=== PATIENT | female | born 1930 ===

== ENCOUNTER 2017-06-14 11:30 | Observation (INO) | payer MEDICARE ==
[2017-06-14 11:30] VITALS: BMI 26.5
[2017-06-14 12:00] LABS: BASO # 0.1 K/uL (0.0-0.2); BASO % 0.8 % (0.0-2.0); EOS % 0.2 % (0.0-4.0); HEMOGLOBIN 12.5 g/dL (11.0-16.0); LYMPH # 1.5 K/uL (1.0-4.3); LYMPH % 14.7 % (20.0-40.0); MEAN CELL VOLUME 90.9 fL (81.0-99.0); MEAN CORPUSCULAR HEMOGLOBIN 30.9 pg (27.0-31.0); MEAN PLATELET VOLUME 8.9 fL (7.2-11.7); MONO # 0.8 K/uL (0.0-0.8); MONO % 8.4 % (0.0-10.0); NEUT # 7.5 K/uL (1.8-7.0); NEUT % 75.9 % (50.0-75.0); RBC 4.06 Mil/uL (3.80-5.20); RED CELL DISTRIBUTION WIDTH 14.5 % (11.5-14.5); WHITE BLOOD COUNT 9.9 K/uL (4.8-10.8)
[2017-06-14 12:13] LABS: ALB/GLOB RATIO 1.1 (1.0-2.1); ALBUMIN 3.7 g/dL (3.5-5.0); ALT/SGPT 23 U/L (9-52); AST/SGOT 31 U/L (14-36); BLOOD UREA NITROGEN 16 mg/dL (7-17); CALCIUM 9.1 mg/dl (8.6-10.4); GFR AFRICAN-AMERICAN > 60; GFR NON-AFRICAN AMERICAN > 60
--- NOTE | 2017-06-14 12:28 | C.PDOC ---
History Of Present Illness Patient presents to ED sent by PMD after patient was found with High blood pressure at office and states she had dizziness since yesterday. At ED patient is asymptomatic but admits to feeling unstable when walking. Patient admits to nausea but denies vomiting, chest pain, sob, abdominal pain or any other complaints at this time. Time Seen by Provider: 06/14/17 11:54 Chief Complaint (Nursing): Dizziness/Lightheaded History Per: Patient History/Exam Limitations: no limitations Onset/Duration Of Symptoms: Days Current Symptoms Are (Timing): Still Present Past Medical History Reviewed: Historical Data, Nursing Documentation, Vital Signs Vital Signs: Last Vital Signs Temp 98.1 F 06/14/17 11:34 Pulse 94 H 06/14/17 11:34 Resp 19 06/14/17 11:34 BP 194/73 H 06/14/17 11:34 Pulse Ox 98 06/14/17 12:44 - Medical History PMH: Gall Bladder Disease, Hypercholesterolemia, Malignancy (BREAST CA), Osteoporosis Surgical History: Cholecystectomy - [facility] Procedures OTH NONOPER CARD AND VASC MEASURE (09/18/12) Family History: States: No Known Family Hx - Social History Hx Tobacco Use: No Hx Alcohol Use: No Hx Substance Use: No - Immunization History Hx Tetanus Toxoid Vaccination: No Hx Influenza Vaccination: Yes Hx Pneumococcal Vaccination: No Review Of Systems Except As Marked, All Systems Reviewed And Found Negative. Gastrointestinal: Positive for: Nausea Neurological: Positive for: Dizziness Physical Exam - Physical Exam Appears: Non-toxic, No Acute Distress Skin: Warm, Dry, No Rash Head: Atraumatic, Normacephalic Eye(s): bilateral: Normal Inspection Oral Mucosa: Moist Neck: Normal ROM, Supple Cardiovascular: Rhythm Regular Respiratory: Normal Breath Sounds, No Rales, No Rhonchi, No Wheezing Gastrointestinal/Abdominal: Soft, No Tenderness, No Guarding, No Rebound Extremity: Normal ROM, Capillary Refill (<2 seconds) Neurological/Psych: Oriented x3, Normal Speech, Normal Cognition ED Course And Treatment - Laboratory Results Result Diagrams: 06/14/17 11:56 06/14/17 11:56 ECG: Interpreted By Me, Viewed By Me ECG Rhythm: Sinus Rhythm, R BBB Rate From EC (BPM) O2 Sat by Pulse Oximetry: 98 (RA) Pulse Ox Interpretation: Normal Medical Decision Making Medical Decision Making: Assessment: Dizziness Progress: D/w Dr. Bertrand requested for patient to be admitted to Tele obs for dizziness and HTN Disposition Discussed With .: Clemente Bertrand Doctor Will See Patient In The: Hospital Counseled Patient/Family Regarding: Studies Performed, Diagnosis - Disposition Disposition: HOSPITALIZED Disposition Time: 12:28 Condition: FAIR Forms: [facility] ([place]) - Clinical Impression Clinical Impression: Dizziness, Hypertension - Scribe Statement The provider has reviewed the documentation as recorded by the Christianoibchristie Shah All medical record entries made by the Christianoibchristie were at my direction and personally dictated by me. I have reviewed the chart and agree that the record accurately reflects my personal performance of the history, physical exam, medical decision making, and the department course for this patient. I have also personally directed, reviewed, and agree with the discharge instructions and disposition.
[2017-06-14 12:46] LABS: B-TYPE NATRIURETIC PEPTIDE 161 pg/mL (0-900)
--- NOTE | 2017-06-14 13:02 | CT ---
PROCEDURE: CT HEAD WITHOUT CONTRAST. HISTORY: Dizziness COMPARISON: 11/30/2015. TECHNIQUE: Axial computed tomography images were obtained through the head/brain without intravenous contrast. Radiation dose: Total exam DLP = 826.11 mGy-cm. This CT exam was performed using one or more of the following dose reduction techniques: Automated exposure control, adjustment of the mA and/or kV according to patient size, and/or use of iterative reconstruction technique. FINDINGS: HEMORRHAGE: No intracranial hemorrhage. BRAIN: There are mild chronic microangiopathic changes. There is no mass, mass effect or abnormal extra-axial fluid collection. There is no territorial infarction. VENTRICLES: There is mild age-related global parenchymal volume loss and proportionate enlargement of the ventricles and cortical sulci. CALVARIUM: There is hyperostosis frontalis interna. PARANASAL SINUSES: Predominantly clear. MASTOID AIR CELLS: Predominantly clear. OTHER FINDINGS: None. IMPRESSION: No acute intracranial abnormality. No significant interval change.
--- NOTE | 2017-06-14 13:13 | RAD ---
PROCEDURE: CHEST RADIOGRAPH, 1 VIEW HISTORY: Shortness of breath COMPARISON: 11/24/2015. FINDINGS: LUNGS: The lungs are well inflated and clear. PLEURA: No pneumothorax or pleural fluid seen. CARDIOVASCULAR: The heart is normal in size. Atherosclerotic aortic arch calcifications are present. OSSEOUS STRUCTURES: Within normal limits for the patient's age. VISUALIZED UPPER ABDOMEN: Normal. OTHER FINDINGS: Surgical clips in the right upper quadrant are related to prior cholecystectomy.. IMPRESSION: No active pulmonary disease.
--- NOTE | 2017-06-14 18:32 | MRI ---
PROCEDURE: MRI BRAIN WITH AND WITHOUT CONTRAST HISTORY: cerebral ataxia. History of left breast cancer and hypertension. COMPARISON: Noncontrast head CT from 06/14/2017. TECHNIQUE: Multiplanar, multisequence MR images of the brain were obtained with and without intravenous contrast enhancement. 10 mL Omniscan was injected intravenously. FINDINGS: HEMORRHAGE: None DWI: No evidence of an acute or early subacute infarction. BRAIN PARENCHYMA: Cisse-white matter differentiation is preserved. There is no mass, mass effect or abnormal extra-axial fluid collection. There are old lacunar infarctions in the right cerebellar hemisphere. There are mild chronic microangiopathic changes. The midline sagittal structures are normal. ENHANCEMENT: No abnormal intracranial enhancement. VENTRICLES: There is mild age-related global parenchymal volume loss and proportionate enlargement of the ventricles and cortical sulci. CRANIUM: There is normal bone marrow signal pattern. There is mild hyperostosis frontalis interna. ORBITS: Grossly unremarkable. PARANASAL SINUSES/MASTOIDS: Predominantly clear. VASCULAR SYSTEM: There are normal signal voids in the larger intracranial arteries. OTHER FINDINGS: None . IMPRESSION: No acute intracranial abnormality. Mild chronic microangiopathic changes and mild age-related global parenchymal volume loss. 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
--- NOTE | 2017-06-14 23:05 | CP.PCM.HP ---
Past Patient History - Past Medical History & Family History Past Medical History?: Yes - Past Social History Smoking Status: Never Smoked - CARDIAC Hx Hypercholesterolemia: Yes - HEENT Hx HEENT Problems: Yes Hx Cataracts: Yes (BILAT IOL) - ENDOCRINE/METABOLIC Hx Endocrine Disorders: Yes Hx Diabetes Mellitus Type 2: Yes - HEMATOLOGICAL/ONCOLOGICAL Hx Blood Disorders: Yes Hx Cancer: Yes (LEFT BREAST 3 YEARS AGO POST RADIATION) - INTEGUMENTARY Hx Dermatological Problems: Yes Other/Comment: ecchymosis right cheek - MUSCULOSKELETAL/RHEUMATOLOGICAL Hx Osteoporosis: Yes - GASTROINTESTINAL Hx Gall Bladder Disease: Yes - GENITOURINARY/GYNECOLOGICAL Hx Genitourinary Disorders: Yes (THICKENED ENDOMETRIUM) - PSYCHIATRIC Hx Substance Use: No - SURGICAL HISTORY Hx Cholecystectomy: Yes - ANESTHESIA Hx Anesthesia: Yes Hx Anesthesia Reactions: No Hx Malignant Hyperthermia: No Meds Allergies/Adverse Reactions: Allergies Allergy/AdvReac Type Severity Reaction Status Date / Time No Known Allergies Allergy Verified 06/14/17 11:39 Results - Vital Signs Recent Vital Signs: Last Vital Signs Temp 98 F 06/14/17 15:46 Pulse 92 H 06/14/17 16:00 Resp 20 06/14/17 15:46 BP 149/70 06/14/17 15:46 Pulse Ox 98 06/14/17 15:46 - Labs Result Diagrams: 06/14/17 11:56 06/14/17 11:56 Labs: Laboratory Results - last 24 hr 06/14/17 06/14/17 06/14/17 11:56 11:56 12:07 WBC 9.9 RBC 4.06 Hgb 12.5 Hct 36.9 MCV 90.9 MCH 30.9 MCHC 34.0 RDW 14.5 Plt Count 208 MPV 8.9 Neut % (Auto) 75.9 H Lymph % (Auto) 14.7 L Cottle % (Auto) 8.4 Eos % (Auto) 0.2 Baso % (Auto) 0.8 Neut # (Auto) 7.5 H Lymph # (Auto) 1.5 Cottle # (Auto) 0.8 Eos # (Auto) 0.0 Baso # (Auto) 0.1 Sodium 140 Potassium 4.1 Chloride 101 Carbon Dioxide 27 Anion Gap 16 BUN 16 Creatinine 0.6 L Est GFR ( Amer) > 60 Est GFR (Non-Af Amer) > 60 POC Glucose (mg/dL) Random Glucose 121 H Calcium 9.1 Total Bilirubin 0.5 AST 31 ALT 23 Alkaline Phosphatase 52 Troponin I < 0.0120 NT-Pro-B Natriuret Pep 161 Total Protein 7.2 Albumin 3.7 Globulin 3.5 Albumin/Globulin Ratio 1.1 06/14/17 06/14/17 16:12 20:50 WBC RBC Hgb Hct MCV MCH MCHC RDW Plt Count MPV Neut % (Auto) Lymph % (Auto) Cottle % (Auto) Eos % (Auto) Baso % (Auto) Neut # (Auto) Lymph # (Auto) Cottle # (Auto) Eos # (Auto) Baso # (Auto) Sodium Potassium Chloride Carbon Dioxide Anion Gap BUN Creatinine Est GFR ( Amer) Est GFR (Non-Af Amer) POC Glucose (mg/dL) 79 170 H Random Glucose Calcium Total Bilirubin AST ALT Alkaline Phosphatase Troponin I NT-Pro-B Natriuret Pep Total Protein Albumin Globulin Albumin/Globulin Ratio
[2017-06-15 06:39] LABS: BASO # 0.1 K/uL (0.0-0.2); BASO % 1.3 % (0.0-2.0); EOS # 0.1 K/uL (0.0-0.7); EOS % 1.8 % (0.0-4.0); HEMOGLOBIN 12.5 g/dL (11.0-16.0); LYMPH # 2.1 K/uL (1.0-4.3); LYMPH % 27.9 % (20.0-40.0); MEAN CELL VOLUME 91.1 fL (81.0-99.0); MEAN CORPUSCULAR HEMOGLOBIN 31.2 pg (27.0-31.0); MEAN CORPUSCULAR HGB CONC 34.3 g/dL (33.0-37.0); MEAN PLATELET VOLUME 9.3 fL (7.2-11.7); MONO # 0.8 K/uL (0.0-0.8); MONO % 10.6 % (0.0-10.0); NEUT # 4.4 K/uL (1.8-7.0); NEUT % 58.4 % (50.0-75.0); NRBC % 0.1 % (0.0-2.0); RED CELL DISTRIBUTION WIDTH 14.6 % (11.5-14.5); WHITE BLOOD COUNT 7.5 K/uL (4.8-10.8)
[2017-06-15 06:53] LABS: ALB/GLOB RATIO 1.1 (1.0-2.1); ALBUMIN 3.6 g/dL (3.5-5.0); ALT/SGPT 24 U/L (9-52); AST/SGOT 29 U/L (14-36); BLOOD UREA NITROGEN 14 mg/dL (7-17); GFR AFRICAN-AMERICAN > 60; GFR NON-AFRICAN AMERICAN > 60
[2017-06-15 07:01] LABS: CK-MB 0.52 ng/mL (0.0-3.38)
[2017-06-15 08:07] VITALS: BP 144/68; RESP 18; TEMP 98.1; O2SAT 98
--- NOTE | 2017-06-15 12:55 | CP.PCM.PN ---
Subjective - Date & Time of Evaluation Date of Evaluation: 06/15/17 Time of Evaluation: 12:55 - Subjective Subjective: - SEGUIMIENTO CON EL DR. GOLDBERG EN LA OFICINA EN EL PLAZO DE 7 RDZ --- LLAME A LA OFICINA HOY PARA HACER YULIYA KEITH. - CONTINE TOMANDO LOS MEDICAMENTOS DE [facility] [facility]. -CRESPO SIDO REFERIDOS A [facility] (ASOCIACIN DE ENFERMERAS VISITANTES) PARA TERAPIA VESTIBULAR (RADHA ES TERAPIA PARA AYUDAR CON [place]END[place] MAREO). LA COMPAA SE COMUNICAR CON USTED TEMPRANO LA PRXIMA SEMANA PARA DECIDIRLE SI CROSS SIDO APROBADO PARA LOS SERVICIOS EN CASA. SI NO RECIBE DE ELLOS EL MIRCOLES, LLAME AL NMERO EN LA PARTE POSTERIOR DEL FOLLETO QUE LE CRESPO DADO. -SI TIENE ALGUNA OTRA PREOCUPACIN O PREGUNTA, PNGASE EN CONTACTO CON EL DR. GOLDBERG. -FOLLOW UP WITH DR. GOLDBERG IN THE OFFICE WITHIN 7 DAYS---CALL THE OFFICE TODAY TO MAKE AN APPOINTMENT. -CONTINUE TAKING YOUR HOME MEDICATIONS USUAL. -YOU HAVE BEEN REFERRED TO [facility] (VISITING NURSE SCOTT) FOR VESTIBULAR THERAPY (THIS IS THERAPY TO HELP WITH YOUR DIZZINESS). THE COMPANY WILL CONTACT YOU EARLY NEXT WEEK TO LET YOU KNOW IF YOU HAVE BEEN APPROVED FOR SERVICES AT HOME. IF YOU DO NOT HEAR FROM THEM BY SUNDAY, CALL THE NUMBER ON THE BACK OF THE PAMPHLET YOU HAVE BEEN GIVEN. -IF YOU HAVE ANY FURTHER CONCERNS OR QUESTIONS, CONTACT DR. GOLDBERG. Objective - Vital Signs/Intake and Output Vital Signs (last 24 hours): Temp Pulse Resp BP Pulse Ox 98.1 F 80 18 144/68 98 06/15/17 08:01 06/15/17 08:01 06/15/17 08:01 06/15/17 08:01 06/15/17 08:01 Intake and Output: 06/15/17 06/15/17 06:59 18:59 Intake Total 560 Balance 560 - Medications Medications: Current Medications Aspirin (Ecotrin) 81 mg PO DAILY [facility] Last Admin: 06/15/17 10:16 Dose: 81 mg Heparin Sodium (Porcine) (Heparin) 5,000 units SC Q8 [facility] Last Admin: 06/15/17 06:03 Dose: 5,000 units Pneumococcal Polyvalent Vaccine (Pneumovax 23 Vaccine) 0.5 ml IM .ONCE ONE Stop: 06/16/17 10:01 Rosuvastatin Calcium (Crestor) 5 mg PO HS [facility] Last Admin: 06/14/17 21:37 Dose: 5 mg Tamoxifen Citrate (Nolvadex) 20 mg PO DAILY [facility] Last Admin: 06/15/17 10:16 Dose: 20 mg - Labs Labs: 06/15/17 06:28 06/15/17 06:28 APTT 28 SECONDS (21-34) 06/15/17 06:28
--- NOTE | 2017-06-15 13:06 | CARD ---
APPROVED REPORT EXAM: Two-dimensional and M-mode echocardiogram with Doppler and color Doppler. Other Information Quality : GoodRhythm : INDICATION Dizziness and Vertigo Syncope RISK FACTORS Hypertension 2D DIMENSIONS IVSd0.6 (0.7-1.1cm)LVDd5.0 (3.9-5.9cm) PWd0.6 (0.7-1.1cm)LVDs2.4 (2.5-4.0cm) FS (%) 51.6 %LVEF (%)82.6 (>50%) M-Mode DIMENSIONS RVDd1.80 (2.1-3.2cm)Left Atrium (MM)2.83 (2.5-4.0cm) IVSd1.09 (0.7-1.1cm)Aortic Root2.83 (2.2-3.7cm) LVDd5.01 (4.0-5.6cm)Aortic Cusp Exc.1.75 (1.5-2.0cm) PWd0.94 (0.7-1.1cm)FS (%) 45 % LVDs2.76 (2.0-3.8cm)LVEF (%)76 (>50%) Mitral Valve MV E Trtqftxe70.4cm/sMV A Vdgsshyh096.9cm/sE/A ratio0.6 TDI E/Lateral E'0.0E/Medial E'0.0 Tricuspid Valve TR Peak Sretakky838et/sTR Peak [id number] LEFT VENTRICLE The left ventricle is normal size. There is normal left ventricular wall thickness. The left ventricular systolic function is normal. The left ventricular ejection fraction is within the normal range. There is normal LV segmental wall motion. Transmitral Doppler flow pattern is Grade I-abnormal relaxation pattern. RIGHT VENTRICLE The right ventricle is normal size. The right ventricular systolic function is normal. ATRIA The left atrium size is normal. The right atrium size is normal. AORTIC VALVE The aortic valve is normal in structure. No aortic regurgitation is present. MITRAL VALVE The mitral valve is normal in structure. Mitral regurgitation is trace to mild. TRICUSPID VALVE The tricuspid valve is normal in structure. There is mild tricuspid regurgitation. Right ventricular systolic pressure is estimated at - 35 mmHg. There is mild pulmonary hypertension. PULMONIC VALVE The pulmonic valve is not well visualized. There is mild pulmonic valvular regurgitation. GREAT VESSELS The aortic root is normal in size. The aortic root displays mild sclerocalcific changes. The IVC is normal in size and collapses >50% with inspiration. PERICARDIAL EFFUSION There is no pericardial effusion. <Conclusion> The left ventricular systolic function is normal. Transmitral Doppler flow pattern is Grade I-abnormal relaxation pattern. The right ventricular systolic function is normal. Mitral regurgitation is trace to mild. There is mild tricuspid regurgitation. Right ventricular systolic pressure is estimated at - 37 mmHg compatible with mild pulmonary hypertension. The aortic root displays mild sclerocalcific changes. There is no pericardial effusion.
--- NOTE | 2017-06-15 13:31 | VASCLAB ---
PROCEDURE: HISTORY: vertigo COMPARISON: None available. TECHNIQUE: Grayscale and duplex Doppler evaluation of the cervical carotid and vertebral arteries were performed. The common carotid, carotid bifurcations and cervical Internal Carotid Artery (ICA) and proximal External Carotid Artery (ECA) were evaluated. The vertebral arteries were evaluated for gross patency and flow direction. Report prepared by Judah Ventura, BS, RVT FINDINGS: RIGHT CAROTID ARTERIES: 1. Common Carotid Artery: No significant focal plaque formation of the right common carotid artery. Maximum Peak Systolic velocity: 56 cm/sec: End-diastolic velocity 10 cm/sec. 2. Carotid Bifurcation: plaque formation. Maximum Peak Systolic velocity: 84 cm/sec: End-diastolic velocity 10 cm/sec. 3. Internal Carotid Artery: Plaque description: 3.1. Proximal Segment: Peak systolic velocity 96 cm/sec: End-diastolic velocity 20 cm/sec - % stenosis 0-15% 3.2. Middle Segment: Peak systolic velocity 106 cm/sec: End-diastolic velocity 24 cm/sec - % stenosis 0-15% 3.3. Distal Segment: Peak systolic velocity 72 cm/sec: End-diastolic velocity 16 cm/sec - % stenosis 0-15% 4. External Carotid Artery: No significant focal plaque formation. Peak systolic velocity 116 cm/sec 5. ICA/CCA Ratio: 1.9 LEFT CAROTID ARTERIES: 1. Common Carotid Artery: No significant focal plaque formation of the left common carotid artery. Maximum Peak Systolic velocity: 59 cm/sec: End-diastolic velocity 7 cm/sec. 2. Carotid Bifurcation: plaque formation. Maximum Peak Systolic velocity: 66 cm/sec: End-diastolic velocity 12 cm/sec. 3. Internal Carotid Artery: Plaque description: 3.1. Proximal Segment: Peak systolic velocity 212 cm/sec: End-diastolic velocity 50 cm/sec - % stenosis 60-70% 3.2. Middle Segment: Peak systolic velocity 83 cm/sec: End-diastolic velocity 15 cm/sec - % stenosis 0-15% 3.3. Distal Segment: Peak systolic velocity 86 cm/sec: End-diastolic velocity 12 cm/sec - % stenosis 0-15% 4. External Carotid Artery: No significant focal plaque formation. Peak systolic velocity 112 cm/sec 5. ICA/CCA Ratio: 3.6 VERTEBRAL ARTERIES: 1. Right Vertebral Artery: The right vertebral artery flow direction is antegrade. 2. Left Vertebral Artery: The left vertebral artery flow direction is antegrade. OTHER FINDINGS: 1. Right Brachial Blood pressure: 158 mmHg. 2. Left Brachial Blood pressure: mmHg. IMPRESSION: RIGHT: Duplex scan does not suggest hemodynamically significant stenosis of the right extracranial carotid arteries. 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
[2017-06-15 14:58] VITALS: PULSE 90
--- NOTE | 2017-06-15 23:12 | CARD ---
APPROVED REPORT EKG Measurement Heart [id number] <Conclusion> Normal sinus rhythm Right bundle branch block Abnormal ECG
[2017-06-16] MEDS ORDERED: Pneumococcal 23-Valent Vaccine IM ONE (10:00)
== END 2017-06-15 13:38 | disposition home or self-care (01) ==
LOC: C.ER 11:30 → C.9E 12:27 → C.6T 14:34
PROVIDERS: ADMIT Internal Medicine; ATTEND Internal Medicine
DX: I10 Essential (primary) hypertension (principal); E78.00 Pure hypercholesterolemia, unspecified; M81.0 Age-related osteoporosis without current pathological fracture; Z85.3 Personal history of malignant neoplasm of breast; E11.9 Type 2 diabetes mellitus without complications
CPT/HCPCS: 36415; 70450; 70553; 71045; 80053; 82948; 83880; 84484; 85025; 85730; 93005; 93306; 93880; 96374; 99285; G0378; J1644; J2405

== ENCOUNTER 2018-06-10 09:24 | Outpatient (CLI) | payer MEDICARE | END 2018-06-10 09:25 | disposition home or self-care (01) | LOC: C.MAMMO 09:24 | DX: Z12.31 Encounter for screening mammogram for malignant neoplasm of breast (principal) ==